=== PATIENT | male | born 1980 | race Two or more races ===

== ENCOUNTER 2016-10-17 00:14 | Inpatient (IN) | payer SELFPAY ==
[~2016-10-17] VITALS: Ht 182.9 cm; Wt 83.3 kg
[2016-10-17] VITALS (35 sets, daily range): BP systolic 121–183; BP diastolic 66–107
[2016-10-17 00:48] LABS: Basophils # (auto) 0.1 uL; Basophils % (auto) 1.3 % (0.0-2.0); DEFINITIVE VIEW TRANSMISSION; Eosinophils # (auto) 0.2 uL; Eosinophils % (auto) 2.4 % (0.0-7.0); Hematocrit 42.7 % (41.0-53.0); Hemoglobin 14.1 g/dL (13.5-17.5); Lymphocytes # (auto) 3.4 uL; Lymphocytes % (auto) 46.3 % (10.0-50.0); Mean Corpuscular Hemoglobin 25.1 pg (28.0-32.0); Mean Corpuscular Hgb Conc. 32.9 g/dL (32.0-36.0); Mean Corpuscular Volume 76.1 fL (80.0-100.0); Mean Platelet Volume 9.2 fL (7.4-10.4); Monocytes # (auto) 0.4 uL; Neutrophils # (auto) 3.3 uL; Platelet Count (auto) 307 10^3/uL (140-450); Red Cell Distribution Width 11.8 % (11.6-16.0); White Blood Cell 7.4 10^3/uL (4.4-10.8)
[2016-10-17 01:01] LABS: Partial Thromboplastin Time 26.3 sec (22.64-33.71); Prothrombin Time 9.4 sec (9.37-12.3)
[2016-10-17 01:08] LABS: Anion Gap 8 (5-15); Blood Urea Nitrogen 22 mg/dL (7-18); Calcium 8.7 mg/dL (8.5-10.1); Carbon Dioxide 28 mmol/L (21-32); Chloride 101 mmol/L (98-107); Glucose 328 mg/dL (74-106); Magnesium 2.1 mg/dL (1.6-2.6); Potassium 3.9 mmol/L (3.5-5.1); Sodium 137 mmol/L (136-145)
[2016-10-17 01:09] LABS: INR 0.87 (0.9-1.15)
[2016-10-17 01:10] LABS: Alkaline Phosphatase 165 U/L (45-117); Aspartate Aminotransferase 11 U/L (15-37); BUN/Creatinine Ratio 19.3; Bilirubin, Total 0.8 mg/dL (0.2-1.0); GFR African American 92 mL/min; GFR Non-African American 76 mL/min; Total Protein 7.1 g/dL (6.4-8.2)
[2016-10-17 01:15] LABS: B-Type Natriuretic Peptide 15.6 pg/mL (0-100); Temperature: 21.4 C (20.0-25.0)
[2016-10-17] MEDS ORDERED: cloNIDine HCL 0.1 MG TAB PO ONE (02:15)
[2016-10-17] MEDS ORDERED: SODIUM CHLORIDE 0.9% 1,000 ML IV SCH (06:01)
[2016-10-17] MEDS ORDERED: NITROGLYCERIN 0.4 MG SL TAB SL PRN (06:15)
[2016-10-17] MEDS ORDERED: DEXTROSE (50%) 50ML SYRG IV PRN (06:15)
[2016-10-17] MEDS ORDERED: ACETAMINOPHEN 325 MG TAB PO PRN (06:15)
[2016-10-17] MEDS ORDERED: ONDANSETRON HCL 4 MG/2 ML VIAL IV PRN (06:15)
[2016-10-17] MEDS ORDERED: HYDROcodone-ACET 5/325MG TAB PO PRN (06:15)
[2016-10-17] MEDS ORDERED: MORPHINE SULF INJ 2 MG/ML SYRINGE 1ML IV PRN ×2 (06:15)
[2016-10-17] MEDS: ASPirin 325 MG TAB PO SCH (09:56)
[2016-10-17] MEDS: PANTOPRAZOLE SODIUM 40 MG/10 ML VIAL IV SCH (10:07)
[2016-10-17] MEDS: ENOXAPARIN SOD 40 MG/0.4 ML SYRINGE SC SCH (10:08)
[2016-10-17] MEDS ORDERED: LORazepam 2MG/ML-1ML VIAL ONE (10:47)
[2016-10-17] MEDS ORDERED: ENAL20TA70 PO (10:58)
[2016-10-17] MEDS ORDERED: LEVEMIR SC (10:58)
[2016-10-17] MEDS ORDERED: RABE20TA5 PO (10:58)
[2016-10-17] MEDS ORDERED: INSDRIP SC (10:58)
[2016-10-17] MEDS ORDERED: LORazepam 2MG/ML-1ML VIAL IV ONE (11:00)
[2016-10-17] MEDS: InsuLIN REG 1unit/0.01ml Soln (100units/ml) SC SCH ×3 (12:00→23:12)
[2016-10-17] MEDS: ACCU-CHEK COMFORT CURVE STRIP VI SCH ×3 (12:00→23:12)
[2016-10-17] MEDS ORDERED: LABETALOL HCL 5 MG/ML 4ML SYRINGE IV PRN (16:45)
[2016-10-17] MEDS: SODIUM CHLORIDE 0.9% 1,000 ML IV SCH (17:11)
[2016-10-17 17:18] LABS: Cholesterol 252 mg/dL (< 200); HDL Cholesterol 40 mg/dL (40-59); Triglycerides 436 mg/dL (< 150)
[2016-10-17] MEDS: INSULIN DETEMIR(LEVEMIR) 1unit/0.01ml Soln (100units/ml) SC SCH (22:00)
[2016-10-17] MEDS: ATORVASTATIN 20 MG TAB PO SCH (22:00)
[2016-10-17] MEDS ORDERED: LORazepam 2MG/ML-1ML VIAL IV PRN (22:30)
[2016-10-18] VITALS (23 sets, daily range): BP systolic 135–176; BP diastolic 57–95
[2016-10-18 03:48] LABS: Basophils # (auto) 0 uL; Basophils % (auto) 0.4 % (0.0-2.0); DEFINITIVE VIEW TRANSMISSION; Eosinophils # (auto) 0.1 uL; Eosinophils % (auto) 1.5 % (0.0-7.0); Lymphocytes # (auto) 1.8 uL; Lymphocytes % (auto) 20.6 % (10.0-50.0); Mean Corpuscular Hemoglobin 25.2 pg (28.0-32.0); Mean Corpuscular Hgb Conc. 32.5 g/dL (32.0-36.0); Mean Corpuscular Volume 77.5 fL (80.0-100.0); Mean Platelet Volume 9.4 fL (7.4-10.4); Monocytes # (auto) 0.4 uL; Monocytes % (auto) 4.7 % (0.0-12.0); Neutrophils # (auto) 6.5 uL; Neutrophils % (auto) 72.8 % (37.0-80.0); Platelet Count (auto) 296 10^3/uL (140-450); Red Cell Distribution Width 13.2 % (11.6-16.0); White Blood Cell 8.9 10^3/uL (4.4-10.8)
[2016-10-18 04:14] LABS: Albumin 2.6 g/dL (3.4-5.0); BUN/Creatinine Ratio 22.1; Bilirubin, Total 0.9 mg/dL (0.2-1.0); Calcium 8.6 mg/dL (8.5-10.1); Magnesium 2.2 mg/dL (1.6-2.6); Potassium 3.9 mmol/L (3.5-5.1); Total Protein 6.5 g/dL (6.4-8.2)
[2016-10-18] MEDS: InsuLIN REG 1unit/0.01ml Soln (100units/ml) SC SCH ×4 (06:00→23:40)
[2016-10-18] MEDS: ACCU-CHEK COMFORT CURVE STRIP VI SCH ×4 (06:05→23:41)
[2016-10-18] MEDS: SODIUM CHLORIDE 0.9% 1,000 ML IV SCH (09:26)
[2016-10-18] MEDS: ASPirin 325 MG TAB PO SCH (09:26)
[2016-10-18] MEDS: PANTOPRAZOLE SODIUM 40 MG/10 ML VIAL IV SCH (09:26)
[2016-10-18] MEDS: ENOXAPARIN SOD 40 MG/0.4 ML SYRINGE SC SCH (09:27)
[2016-10-18] MEDS ORDERED: LISINOPRIL 20 MG TAB PO SCH (10:00)
[2016-10-18] MEDS ORDERED: MIDAZOLAM HCL 5 MG/ML-1ML VIAL IV ONE (10:15)
[2016-10-18] MEDS ORDERED: fentaNYL CITRATE 100 MCG/2 ML VL IV ONE (10:15)
[2016-10-18] MEDS ORDERED: LIDOCAINE VISCOUS 2% 15ML UD ONE (13:01)
[2016-10-18] MEDS ORDERED: LIDOCAINE VISCOUS 2% 15ML UD MT ONE (13:15)
[2016-10-18] MEDS: LABETALOL HCL 5 MG/ML 4ML SYRINGE IV PRN ×2 (18:29→20:30)
[2016-10-18] MEDS: cloNIDine HCL 0.1 MG TAB PO PRN (19:11)
[2016-10-18] MEDS: ATORVASTATIN 20 MG TAB PO SCH (21:46)
[2016-10-18] MEDS: INSULIN DETEMIR(LEVEMIR) 1unit/0.01ml Soln (100units/ml) SC SCH (21:46)
[2016-10-19] VITALS (19 sets, daily range): BP systolic 131–197; BP diastolic 75–96
[2016-10-19] MEDS: SODIUM CHLORIDE 0.9% 1,000 ML IV SCH (03:54)
[2016-10-19 04:24] LABS: Potassium 3.7 mmol/L (3.5-5.1)
[2016-10-19 04:30] LABS: BUN/Creatinine Ratio 18.1; Calcium 8.4 mg/dL (8.5-10.1)
[2016-10-19] MEDS: ACCU-CHEK COMFORT CURVE STRIP VI SCH ×3 (05:54→18:27)
[2016-10-19] MEDS: InsuLIN REG 1unit/0.01ml Soln (100units/ml) SC SCH ×3 (05:54→18:00)
[2016-10-19] MEDS: ENOXAPARIN SOD 40 MG/0.4 ML SYRINGE SC SCH (09:30)
[2016-10-19] MEDS: ASPirin 325 MG TAB PO SCH (09:30)
[2016-10-19] MEDS: PANTOPRAZOLE SODIUM 40 MG/10 ML VIAL IV SCH (09:31)
[2016-10-19] MEDS ORDERED: METOPROLOL TARTRATE 25 MG TAB PO ONE (10:45)
[2016-10-19] MEDS ORDERED: SODIUM CHLORIDE 0.9% 1,000 ML IV SCH (10:45)
[2016-10-19] MEDS ORDERED: LISINOPRIL 20 MG TAB PO ONE (10:45)
[2016-10-19] MEDS ORDERED: IOHEXOL 350 MG/ML 100ML IJ ONE (11:02)
[2016-10-19] MEDS: LABETALOL HCL 5 MG/ML 4ML SYRINGE IV PRN ×4 (12:31→23:38)
[2016-10-19] MEDS ORDERED: INSULIN DETEMIR(LEVEMIR) 1unit/0.01ml Soln (100units/ml) SC SCH (22:00)
[2016-10-19] MEDS: METOPROLOL TARTRATE 25 MG TAB PO SCH (22:08)
[2016-10-19] MEDS: ATORVASTATIN 20 MG TAB PO SCH (22:08)
[2016-10-20] VITALS (7 sets, daily range): BP systolic 131–187; BP diastolic 74–93
[2016-10-20] MEDS: ACCU-CHEK COMFORT CURVE STRIP VI SCH ×3 (00:25→11:45)
[2016-10-20] MEDS: cloNIDine HCL 0.1 MG TAB PO PRN (00:44)
[2016-10-20] MEDS: LABETALOL HCL 5 MG/ML 4ML SYRINGE IV PRN (02:35)
[2016-10-20] MEDS: InsuLIN REG 1unit/0.01ml Soln (100units/ml) SC SCH ×3 (06:00→11:47)
[2016-10-20] MEDS: PANTOPRAZOLE SODIUM 40 MG/10 ML VIAL IV SCH (09:34)
[2016-10-20] MEDS: ENOXAPARIN SOD 40 MG/0.4 ML SYRINGE SC SCH (09:34)
[2016-10-20] MEDS: ASPirin 325 MG TAB PO SCH (09:34)
[2016-10-20] MEDS: METOPROLOL TARTRATE 25 MG TAB PO SCH (09:36)
[2016-10-20] MEDS ORDERED: LISINOPRIL 20 MG TAB PO SCH (10:00)
[2016-10-20 11:06] LABS: Anticardiolipin IgM Antibody <9 MPL U/mL (0-12)
[2016-10-20 12:06] LABS: Protein S Antigen Free 108 % (57-157); Proten S Antigen Total 180 % (60-150)
== END 2016-10-20 16:38 | disposition home or self-care (01) | DRG 65 ==
LOC: ER 00:20 → TELE 00:21 → TELE-WESTW 07:29 → ICU WEST 11:35 → TELE-WESTW 10-20 01:47
PROVIDERS: ADMIT Nurse Practitioner; ATTEND Internal Medicine
PROC: B246ZZ4 Ultrasonography of Right and Left Heart, Transesophageal (ICD-10-PCS; principal; 2016-10-17)
DX: I63.9 Cerebral infarction, unspecified (principal); G81.94 Hemiplegia, unspecified affecting left nondominant side; G81.91 Hemiplegia, unspecified affecting right dominant side; I25.3 Aneurysm of heart; E11.42 Type 2 diabetes mellitus with diabetic polyneuropathy; E11.65 Type 2 diabetes mellitus with hyperglycemia; F17.210 Nicotine dependence, cigarettes, uncomplicated; E78.5 Hyperlipidemia, unspecified; R47.1 Dysarthria and anarthria; F32.9 Major depressive disorder, single episode, unspecified; I10 Essential (primary) hypertension; Z82.49 Family history of ischemic heart disease and other diseases of the circulatory system; Z83.3 Family history of diabetes mellitus; Z80.8 Family history of malignant neoplasm of other organs or systems; Z91.14 Patient's other noncompliance with medication regimen; I25.2 Old myocardial infarction; Z91.19 Patient's noncompliance with other medical treatment and regimen
CPT/HCPCS: 36415; 36600; 70450; 70496; 70498; 70551; 71010; 80048; 80053; 80061; 81241; 82805; 82962; 83036; 83090; 83735; 83880; 84443; 84484; 85025; 85301; 85302; 85303; 85305; 85306; 85610; 85613; 85670; 85705; 85730; 85732; 86147; 87081; 92610; 93005; 93306; 93312; 93886; 96360; C9113; G0434; J1815; J2250; J3490

== ENCOUNTER 2018-11-04 12:11 | Emergency (ER) | payer MEDICAID ==
[~2018-11-04] VITALS: Ht 182.9 cm; Wt 81.6 kg
[~2018-11-04 12:11] MED LIST: ENAL20TA70 PO; LEVEMIR SC; RABE20TA5 PO
[2018-11-04 13:26] LABS: Basophils # (auto) 0.1 uL; Eosinophils # (auto) 0.1 uL; Eosinophils % (auto) 1.8 % (0.0-7.0); Lymphocytes # (auto) 1.8 uL; Mean Corpuscular Hemoglobin 25.4 pg (28.0-32.0); Monocytes # (auto) 0.5 uL; White Blood Cell 7.2 10^3/uL (4.4-10.8)
[2018-11-04 13:28] LABS: Basophils % (auto) 0.8 % (0.0-2.0); Hematocrit 38.8 % (41.0-53.0); Hemoglobin 12.9 g/dL (13.5-17.5); Lymphocytes % (auto) 24.7 % (10.0-50.0); Mean Corpuscular Hgb Conc. 33.2 g/dL (32.0-36.0); Mean Corpuscular Volume 76.5 fL (80.0-100.0); Monocytes % (auto) 6.4 % (0.0-12.0); Neutrophils # (auto) 4.8 uL; Neutrophils % (auto) 66.3 % (37.0-80.0); Platelet Count (auto) 307 10^3/uL (140-450); Red Blood Cells 5.07 10^6/uL (4.5-5.90); Red Cell Distribution Width 13.3 % (11.8-14.3)
[2018-11-04 13:41] LABS: INR 0.85 (0.9-1.15); Partial Thromboplastin Time 30.6 sec (23.78-33.04); Prothrombin Time 9.2 sec (9.27-12.13)
[2018-11-04 13:43] LABS: Alanine Aminotransferase 16 U/L (16-61); Albumin 2.8 g/dL (3.4-5.0); Anion Gap 8 (5-15); Aspartate Aminotransferase 14 U/L (15-37); Blood Urea Nitrogen 38 mg/dL (7-18); Calcium 8.6 mg/dL (8.5-10.1); Carbon Dioxide 23 mmol/L (21-32); Chloride 107 mmol/L (98-107); GFR African American 60 mL/min; GFR Non-African American 49 mL/min; Glucose 305 mg/dL (74-106); Potassium 4.3 mmol/L (3.5-5.1); Sodium 138 mmol/L (136-145)
[2018-11-04 13:48] LABS: Alkaline Phosphatase 158 U/L (45-117); Bilirubin, Total 0.4 mg/dL (0.2-1.0); Total Protein 6.8 g/dL (6.4-8.2)
[2018-11-04 16:20] VITALS: BP 158/80
== END 2018-11-04 17:06 | disposition home or self-care (01) ==
LOC: EDBD 12:11 → ER 12:11
DX: R42 Dizziness and giddiness (principal); R55 Syncope and collapse; I48.91 Unspecified atrial fibrillation; E11.9 Type 2 diabetes mellitus without complications; I10 Essential (primary) hypertension; I25.2 Old myocardial infarction; Z88.8 Allergy status to other drugs, medicaments and biological substances; Z79.899 Other long term (current) drug therapy; Z86.73 Personal history of transient ischemic attack (TIA), and cerebral infarction without residual deficits
CPT/HCPCS: 36415; 70450; 71045; 80053; 84484; 85025; 85610; 85730; 93005; 94761

== ENCOUNTER 2019-09-22 09:37 | Inpatient (IN) | payer MEDICARE, MEDICAID ==
[~2019-09-22] VITALS: Ht 182.9 cm; Wt 97.1 kg
[~2019-09-22 09:37] MED LIST changes: +ENAL20TA PO; -ENAL20TA70 PO
[2019-09-22 10:14] LABS: Urine Bacteria NONE SEEN /hpf (None Seen); Urine Blood TRACE /uL (Negative); Urine Hyaline Cast FEW /lpf (0 - 2); Urine Specific Gravity 1.008 (1.001-1.035); Urine WBC 1 /hpf (0 - 3)
[2019-09-22 10:24] LABS: Basophils # (auto) 0.1 10 ^3/uL (0-0.2); Eosinophils # (auto) 0.2 10 ^3/uL (0-0.8); Hemoglobin 11.6 g/dL (13.5-17.5); Lymphocytes # (auto) 2.2 10 ^3/uL (0.4-5.4); Monocytes # (auto) 0.8 10 ^3/uL (0-1.3)
[2019-09-22 10:25] LABS: Basophils % (auto) 0.9 % (0.0-2.0); Eosinophils % (auto) 1.3 % (0.0-7.0); Hematocrit 35.6 % (41.0-53.0); Lymphocytes % (auto) 17.6 % (10.0-50.0); Mean Corpuscular Hemoglobin 25.6 pg (28.0-32.0); Mean Corpuscular Hgb Conc. 32.6 g/dL (32.0-36.0); Mean Corpuscular Volume 78.6 fL (80.0-100.0); Monocytes % (auto) 6.5 % (0.0-12.0); Neutrophils % (auto) 73.7 % (37.0-80.0); Nucleated Red Blood Cells % 0.1 %; Platelet Count (auto) 474 10^3/uL (140-450); Red Blood Cells 4.54 10^6/uL (4.5-5.90); White Blood Cell 12.3 10^3/uL (4.4-10.8)
[2019-09-22] MEDS ORDERED: CLINDAMYCIN 900MG IV 50 ML IV ONE (10:30)
[2019-09-22] MEDS ORDERED: NIFEdipine 10 MG CAP PO ONE (10:30)
[2019-09-22 10:43] LABS: Albumin 3.2 g/dL (3.4-5.0); Calcium 9.2 mg/dL (8.5-10.1); Potassium 5.5 mmol/L (3.5-5.1)
[2019-09-22 10:49] LABS: Bilirubin, Total 0.5 mg/dL (0.2-1.0); Total Protein 8.7 g/dL (6.4-8.2)
[2019-09-22 10:50] LABS: BUN/Creatinine Ratio 21.7
[2019-09-22] MEDS ORDERED: VANCOMYCIN PER PHARMACY 0 MG IV SCH (14:45)
[2019-09-22] MEDS ORDERED: NITROGLYCERIN 0.4 MG SL TAB SL PRN (14:45)
[2019-09-22] MEDS ORDERED: DEXTROSE (50%) 50ML SYRG IV PRN (14:45)
[2019-09-22] MEDS ORDERED: SODIUM ZIRCONIUM CYCL 10 GM PAK PO ONE (14:45)
[2019-09-22] MEDS ORDERED: MORPHINE SULF INJ 2 MG/ML SYRINGE 1ML IV PRN (14:45)
[2019-09-22] MEDS ORDERED: SODIUM CHLORIDE 0.9% 500 ML IV ONE (14:45)
[2019-09-22] MEDS: SODIUM CHLORIDE 0.9% 1,000 ML IV SCH (16:11)
[2019-09-22] MEDS: VANCOMYCIN 1GM/250ML 250 ML IV SCH (16:12)
[2019-09-22 17:00] VITALS: BP 167/86
[2019-09-22] MEDS: InsuLIN REG 1unit/0.01ml Soln (100units/ml) SC SCH ×2 (17:00→21:20)
[2019-09-22 18:21] LABS: Calcium 8.7 mg/dL (8.5-10.1); Potassium 5.1 mmol/L (3.5-5.1)
[2019-09-22 18:23] LABS: BUN/Creatinine Ratio 19.6
[2019-09-22] MEDS: ACCU-CHEK COMFORT CURVE STRIP VI SCH ×2 (18:41→21:10)
[2019-09-22] MEDS: metroNIDAZOLE 500MG/100ML 100 ML IV SCH (21:10)
[2019-09-22] MEDS: hydrALAZINE HCL 20 MG/ML VL IV PRN (22:37)
[2019-09-22 23:41] VITALS: BP 145/71
[2019-09-23 05:30] VITALS: BP 159/79
[2019-09-23] MEDS: metroNIDAZOLE 500MG/100ML 100 ML IV SCH ×3 (06:15→21:52)
[2019-09-23] MEDS: ACCU-CHEK COMFORT CURVE STRIP VI SCH ×4 (06:16→21:53)
[2019-09-23] MEDS: hydrALAZINE HCL 20 MG/ML VL IV PRN ×2 (06:16→18:12)
[2019-09-23] MEDS: InsuLIN REG 1unit/0.01ml Soln (100units/ml) SC SCH ×4 (06:16→22:08)
[2019-09-23] MEDS: SODIUM CHLORIDE 0.9% 1,000 ML IV SCH ×2 (06:33→10:45)
[2019-09-23] MEDS ORDERED: HYDR25TA4 PO (06:39)
[2019-09-23] MEDS ORDERED: LISI40TA PO (06:39)
[2019-09-23] MEDS ORDERED: GEMF600T7 PO (06:39)
[2019-09-23 09:00] VITALS: BP 145/85
[2019-09-23] MEDS ORDERED: levoFLOXacin 250MG 50 ML IV SCH (10:00)
[2019-09-23] MEDS: levoFLOXacin 750MG 150 ML IV SCH (10:00)
[2019-09-23] MEDS: VANCOMYCIN 1GM/250ML 250 ML IV SCH (10:17)
[2019-09-23] MEDS: amLODIPine BESYLATE 5 MG TAB PO SCH (10:18)
[2019-09-23 10:46] LABS: BUN/Creatinine Ratio 19.6; Calcium 8.5 mg/dL (8.5-10.1); Potassium 5.3 mmol/L (3.5-5.1)
[2019-09-23] MEDS ORDERED: SODIUM CHLORIDE 0.9% 1,000 ML IV SCH (11:30)
[2019-09-23] MEDS ORDERED: ASPirin-EC 81 mg tab PO ONE (12:15)
[2019-09-23] MEDS ORDERED: LACTULOSE 20Gm/30ML SOLN PO ONE (12:15)
[2019-09-23] MEDS ORDERED: LISINOPRIL 20 MG TAB PO ONE (12:15)
[2019-09-23] MEDS ORDERED: GEMFIBROZIL 600 MG TAB PO ONE (12:15)
[2019-09-23] MEDS ORDERED: HCTZ 25 MG TAB PO ONE (12:15)
[2019-09-23] MEDS ORDERED: ASPI-404 PO (12:20)
[2019-09-23 13:00] VITALS: BP 178/89
[2019-09-23] MEDS ORDERED: FUROSEMIDE 100 MG/10ML VIAL IV ONE (13:00)
[2019-09-23] MEDS ORDERED: SODIUM BICARBONATE 8.4% INJ 50ML SYRINGE IV ONE (13:00)
[2019-09-23] MEDS ORDERED: InsuLIN REG 1unit/0.01ml Soln (100units/ml) IV ONE (13:00)
[2019-09-23] MEDS ORDERED: ALBUTEROL SULF 2.5 MG/0.5ML(0.5%) NEB SOLN NEB ONE (13:00)
[2019-09-23] MEDS ORDERED: DEXTROSE (50%) 50ML SYRG IV ONE (13:00)
[2019-09-23] MEDS: SODIUM BICARBONATE 650 MG TAB PO SCH ×3 (13:22→21:52)
[2019-09-23] MEDS: SODIUM ZIRCONIUM CYCL 10 GM PAK PO SCH ×2 (13:25→22:00)
[2019-09-23] MEDS: HYDROcodone-ACET 5/325MG TAB PO PRN (16:54)
[2019-09-23 17:00] VITALS: BP 154/64
[2019-09-23] MEDS: GEMFIBROZIL 600 MG TAB PO SCH (21:52)
[2019-09-23] MEDS: ACETYLCYSTEINE ORAL for CIN 20%(200MG/ML) 4ML PO SCH (21:53)
[2019-09-23 22:00] VITALS: BP 145/89
[2019-09-23 22:05] LABS: Basophils # (auto) 0.1 10 ^3/uL (0-0.2); Eosinophils # (auto) 0 10 ^3/uL (0-0.8); Mean Corpuscular Hgb Conc. 32.9 g/dL (32.0-36.0); Mean Corpuscular Volume 78.2 fL (80.0-100.0); Monocytes # (auto) 1.2 10 ^3/uL (0-1.3)
[2019-09-23 22:07] LABS: Basophils % (auto) 0.5 % (0.0-2.0); Eosinophils % (auto) 0.3 % (0.0-7.0); Hematocrit 28.2 % (41.0-53.0); Hemoglobin 9.3 g/dL (13.5-17.5); Lymphocytes # (auto) 1.9 10 ^3/uL (0.4-5.4); Lymphocytes % (auto) 13.3 % (10.0-50.0); Mean Corpuscular Hemoglobin 25.8 pg (28.0-32.0); Monocytes % (auto) 8.5 % (0.0-12.0); Neutrophils # (auto) 11.2 10 ^3/uL (1.6-8.6); Neutrophils % (auto) 77.4 % (37.0-80.0); Platelet Count (auto) 368 10^3/uL (140-450); Red Blood Cells 3.61 10^6/uL (4.5-5.90); White Blood Cell 14.5 10^3/uL (4.4-10.8)
[2019-09-23 22:24] LABS: BUN/Creatinine Ratio 16.9; Calcium 8.3 mg/dL (8.5-10.1); Potassium 4.7 mmol/L (3.5-5.1)
[2019-09-24] MEDS: VANCOMYCIN 1GM/250ML 250 ML IV SCH ×2 (00:56→17:19)
[2019-09-24 05:00] VITALS: BP_SYST 106; BP_SYST 118; BP_DIAS 53; BP_DIAS 74
[2019-09-24] MEDS: metroNIDAZOLE 500MG/100ML 100 ML IV SCH (05:37)
[2019-09-24] MEDS: SODIUM BICARBONATE 650 MG TAB PO SCH ×4 (05:38→23:00)
[2019-09-24] MEDS: SODIUM ZIRCONIUM CYCL 10 GM PAK PO SCH (05:38)
[2019-09-24] MEDS: ACCU-CHEK COMFORT CURVE STRIP VI SCH ×4 (06:18→23:01)
[2019-09-24] MEDS: InsuLIN REG 1unit/0.01ml Soln (100units/ml) SC SCH ×4 (06:19→22:00)
[2019-09-24 06:24] LABS: Basophils # (auto) 0.1 10 ^3/uL (0-0.2); Basophils % (auto) 0.8 % (0.0-2.0); Eosinophils # (auto) 0.1 10 ^3/uL (0-0.8); Red Cell Distribution Width 12.6 % (11.8-14.3); White Blood Cell 11.9 10^3/uL (4.4-10.8)
[2019-09-24 06:27] LABS: Eosinophils % (auto) 0.5 % (0.0-7.0); Hematocrit 27.8 % (41.0-53.0); Hemoglobin 9.4 g/dL (13.5-17.5); Lymphocytes # (auto) 2.5 10 ^3/uL (0.4-5.4); Lymphocytes % (auto) 20.8 % (10.0-50.0); Mean Corpuscular Hemoglobin 26.3 pg (28.0-32.0); Mean Corpuscular Hgb Conc. 33.6 g/dL (32.0-36.0); Monocytes % (auto) 8.7 % (0.0-12.0); Neutrophils # (auto) 8.2 10 ^3/uL (1.6-8.6); Neutrophils % (auto) 69.2 % (37.0-80.0); Platelet Count (auto) 361 10^3/uL (140-450); Red Blood Cells 3.56 10^6/uL (4.5-5.90)
[2019-09-24 06:46] LABS: Potassium 4.7 mmol/L (3.5-5.1)
[2019-09-24 06:54] LABS: Albumin 2.4 g/dL (3.4-5.0); Bilirubin, Total 0.8 mg/dL (0.2-1.0); Calcium 8.2 mg/dL (8.5-10.1); Total Protein 6.7 g/dL (6.4-8.2)
[2019-09-24 09:00] VITALS: BP 130/72
[2019-09-24] MEDS: levoFLOXacin 750MG 150 ML IV SCH (09:49)
[2019-09-24] MEDS: ASPirin-EC 81 mg tab PO SCH (09:51)
[2019-09-24] MEDS: amLODIPine BESYLATE 5 MG TAB PO SCH (09:52)
[2019-09-24] MEDS: GEMFIBROZIL 600 MG TAB PO SCH ×2 (09:52→23:00)
[2019-09-24] MEDS: HCTZ 25 MG TAB PO SCH (09:53)
[2019-09-24] MEDS ORDERED: LISINOPRIL 20 MG TAB PO SCH (10:00)
[2019-09-24] MEDS ORDERED: LACTULOSE 20Gm/30ML SOLN PO ONE (10:00)
[2019-09-24] MEDS ORDERED: SODIUM CHLORIDE 0.9% 1,000 ML IV SCH ×2 (10:30)
[2019-09-24] MEDS ORDERED: ACETYLCYSTEINE ORAL for CIN 20%(200MG/ML) 4ML PO ONE (10:30)
[2019-09-24] MEDS: ACETYLCYSTEINE ORAL for CIN 20%(200MG/ML) 4ML PO SCH ×2 (11:40→22:00)
[2019-09-24 11:54] LABS: INR 1.05 (0.9-1.15)
[2019-09-24] MEDS ORDERED: LIDOCAINE 1% (LOCAL ANESTH.) PF 5ml SDV ID ONE (15:30)
[2019-09-24 17:06] VITALS: BP 136/68
[2019-09-24 20:00] VITALS: BP 152/86
[2019-09-24 22:00] VITALS: BP 152/86
[2019-09-24] MEDS: SODIUM CHLOR 0.9% PF (SALINE LOCK) 10ML VIAL/SYR IV SCH (22:00)
[2019-09-24] MEDS ORDERED: ACETYLCYSTEINE ORAL for CIN 20%(200MG/ML) 4ML PO SCH (22:00)
[2019-09-25 05:00] VITALS: BP 140/67
[2019-09-25] MEDS: SODIUM BICARBONATE 650 MG TAB PO SCH ×4 (05:49→22:46)
[2019-09-25 05:58] LABS: Basophils # (auto) 0.1 10 ^3/uL (0-0.2); Basophils % (auto) 0.6 % (0.0-2.0); Eosinophils # (auto) 0.1 10 ^3/uL (0-0.8); Eosinophils % (auto) 0.9 % (0.0-7.0); Hematocrit 26.7 % (41.0-53.0); Hemoglobin 8.7 g/dL (13.5-17.5); Lymphocytes # (auto) 2.3 10 ^3/uL (0.4-5.4); Lymphocytes % (auto) 19.3 % (10.0-50.0); Mean Corpuscular Hemoglobin 25.6 pg (28.0-32.0); Mean Corpuscular Hgb Conc. 32.5 g/dL (32.0-36.0); Mean Corpuscular Volume 78.7 fL (80.0-100.0); Monocytes # (auto) 0.9 10 ^3/uL (0-1.3); Neutrophils # (auto) 8.4 10 ^3/uL (1.6-8.6); Neutrophils % (auto) 71.2 % (37.0-80.0); Platelet Count (auto) 357 10^3/uL (140-450); Red Blood Cells 3.39 10^6/uL (4.5-5.90); Red Cell Distribution Width 12.6 % (11.8-14.3); White Blood Cell 11.8 10^3/uL (4.4-10.8)
[2019-09-25 06:12] LABS: Albumin 2.1 g/dL (3.4-5.0); Calcium 8.3 mg/dL (8.5-10.1); Potassium 4.7 mmol/L (3.5-5.1)
[2019-09-25 06:15] LABS: BUN/Creatinine Ratio 17.6
[2019-09-25 06:18] LABS: Bilirubin, Total 0.6 mg/dL (0.2-1.0); Total Protein 6.7 g/dL (6.4-8.2)
[2019-09-25] MEDS: InsuLIN REG 1unit/0.01ml Soln (100units/ml) SC SCH ×4 (07:00→22:49)
[2019-09-25] MEDS: ACCU-CHEK COMFORT CURVE STRIP VI SCH ×4 (07:10→22:00)
[2019-09-25 08:00] VITALS: BP 127/65
[2019-09-25] MEDS ORDERED: SODIUM CHLORIDE 0.9% 1,000 ML IV SCH (08:00)
[2019-09-25] MEDS ORDERED: SODIUM BICARBONATE 50ML VIAL 50 ML in SOD CHL 0.45% 1,000 ML IV SCH ×2 (08:00→08:30)
[2019-09-25] MEDS ORDERED: SODIUM BICARBONATE 50ML VIAL 50 ML in SODIUM CHLORIDE 0.9% 1,000 ML IV SCH (08:30)
[2019-09-25 09:00] VITALS: BP 127/65
[2019-09-25] MEDS ORDERED: fentaNYL CITRATE 100 MCG/2 ML VL ONE (10:00)
[2019-09-25] MEDS: CLOPIDOGREL BISULFATE 75 MG TAB PO SCH (10:00)
[2019-09-25] MEDS: ACETYLCYSTEINE ORAL for CIN 20%(200MG/ML) 4ML PO SCH (10:00)
[2019-09-25] MEDS: SODIUM CHLOR 0.9% PF (SALINE LOCK) 10ML VIAL/SYR IV SCH ×2 (10:00→22:46)
[2019-09-25] MEDS: ASPirin-EC 81 mg tab PO SCH (10:00)
[2019-09-25] MEDS ORDERED: ANGIOMAX 250 MG VIAL IV ONE (10:00)
[2019-09-25] MEDS ORDERED: MIDAZOLAM HCL 1MG/1ML-2 ML VIAL ONE ×2 (10:00→10:59)
[2019-09-25] MEDS ORDERED: SODIUM CHL 0.9% 50 ML ONE (10:01)
[2019-09-25] MEDS ORDERED: IODIXANOL 320MG/ML 100ML BTL IV ONE (10:29)
[2019-09-25] MEDS ORDERED: LIDOCAINE 2%HCL (LOCAL ANESTH.) INJ 20ML MDV ONE (10:29)
[2019-09-25] MEDS ORDERED: CLOPIDOGREL BISULFATE 75 MG TAB ONE (11:43)
[2019-09-25] MEDS ORDERED: ASPirin 81 mg TAB ONE (11:43)
[2019-09-25] MEDS: GEMFIBROZIL 600 MG TAB PO SCH ×2 (13:23→22:46)
[2019-09-25] MEDS: HCTZ 25 MG TAB PO SCH (13:23)
[2019-09-25] MEDS: CEFTRIAXONE SODIUM 2 GM in D5W 5% 50 ML IV SCH (13:23)
[2019-09-25] MEDS: amLODIPine BESYLATE 5 MG TAB PO SCH (13:24)
[2019-09-25 16:00] VITALS: BP 134/66
[2019-09-25 20:00] VITALS: BP 153/84
[2019-09-25 20:45] VITALS: BP_SYST 112; BP_SYST 153; BP_DIAS 63; BP_DIAS 84
[2019-09-25] MEDS: HYDROcodone-ACET 5/325MG TAB PO PRN (20:56)
[2019-09-26] VITALS (8 sets, daily range): BP systolic 124–160; BP diastolic 62–89
[2019-09-26 05:33] LABS: Basophils # (auto) 0.1 10 ^3/uL (0-0.2); Eosinophils # (auto) 0.1 10 ^3/uL (0-0.8); Monocytes # (auto) 0.9 10 ^3/uL (0-1.3); Red Blood Cells 3.16 10^6/uL (4.5-5.90); Red Cell Distribution Width 12.5 % (11.8-14.3); White Blood Cell 11.1 10^3/uL (4.4-10.8)
[2019-09-26 05:37] LABS: Basophils % (auto) 0.7 % (0.0-2.0); Eosinophils % (auto) 0.8 % (0.0-7.0); Hematocrit 24.7 % (41.0-53.0); Hemoglobin 8.2 g/dL (13.5-17.5); Lymphocytes # (auto) 2.3 10 ^3/uL (0.4-5.4); Lymphocytes % (auto) 20.5 % (10.0-50.0); Mean Corpuscular Hemoglobin 26.1 pg (28.0-32.0); Mean Corpuscular Hgb Conc. 33.2 g/dL (32.0-36.0); Mean Corpuscular Volume 78.4 fL (80.0-100.0); Monocytes % (auto) 8.5 % (0.0-12.0); Neutrophils # (auto) 7.7 10 ^3/uL (1.6-8.6); Neutrophils % (auto) 69.5 % (37.0-80.0); Platelet Count (auto) 329 10^3/uL (140-450)
[2019-09-26 05:48] LABS: Albumin 2.1 g/dL (3.4-5.0); Potassium 4.4 mmol/L (3.5-5.1)
[2019-09-26 05:50] LABS: BUN/Creatinine Ratio 19.5
[2019-09-26 05:53] LABS: Bilirubin, Total 0.5 mg/dL (0.2-1.0); Total Protein 6.3 g/dL (6.4-8.2)
[2019-09-26] MEDS: SODIUM BICARBONATE 650 MG TAB PO SCH ×4 (06:00→21:12)
[2019-09-26] MEDS: ACCU-CHEK COMFORT CURVE STRIP VI SCH ×4 (06:58→21:20)
[2019-09-26] MEDS: InsuLIN REG 1unit/0.01ml Soln (100units/ml) SC SCH ×4 (07:00→21:43)
[2019-09-26] MEDS: CEFTRIAXONE SODIUM 2 GM in D5W 5% 50 ML IV SCH (09:00)
[2019-09-26] MEDS: CLOPIDOGREL BISULFATE 75 MG TAB PO SCH (10:20)
[2019-09-26] MEDS: amLODIPine BESYLATE 5 MG TAB PO SCH (10:20)
[2019-09-26] MEDS: HCTZ 25 MG TAB PO SCH (10:20)
[2019-09-26] MEDS: SODIUM CHLOR 0.9% PF (SALINE LOCK) 10ML VIAL/SYR IV SCH ×2 (10:20→21:12)
[2019-09-26] MEDS: ASPirin-EC 81 mg tab PO SCH (10:20)
[2019-09-26] MEDS: GEMFIBROZIL 600 MG TAB PO SCH ×2 (10:20→21:12)
[2019-09-26] MEDS ORDERED: VANCOMYCIN 1GM/250ML 250 ML IV ONE (11:00)
[2019-09-26] MEDS: hydrALAZINE HCL 20 MG/ML VL IV PRN (14:25)
[2019-09-27] MEDS: SODIUM BICARBONATE 650 MG TAB PO SCH ×4 (05:43→21:33)
[2019-09-27] MEDS: VANCOMYCIN 1GM/250ML 250 ML IV SCH (05:43)
[2019-09-27] MEDS: ACCU-CHEK COMFORT CURVE STRIP VI SCH ×4 (05:52→21:24)
[2019-09-27] MEDS: InsuLIN REG 1unit/0.01ml Soln (100units/ml) SC SCH ×4 (06:18→21:36)
[2019-09-27 06:51] LABS: Calcium 8.2 mg/dL (8.5-10.1); Potassium 4.2 mmol/L (3.5-5.1)
[2019-09-27 08:55] VITALS: BP 150/69
[2019-09-27] MEDS: GEMFIBROZIL 600 MG TAB PO SCH ×2 (09:52→21:35)
[2019-09-27] MEDS: CLOPIDOGREL BISULFATE 75 MG TAB PO SCH (09:52)
[2019-09-27] MEDS: SODIUM CHLOR 0.9% PF (SALINE LOCK) 10ML VIAL/SYR IV SCH ×2 (09:52→22:00)
[2019-09-27] MEDS: CEFTRIAXONE SODIUM 2 GM in D5W 5% 50 ML IV SCH (09:52)
[2019-09-27] MEDS: ASPirin-EC 81 mg tab PO SCH (09:52)
[2019-09-27] MEDS: HCTZ 25 MG TAB PO SCH (09:53)
[2019-09-27] MEDS: amLODIPine BESYLATE 5 MG TAB PO SCH (09:53)
[2019-09-27] MEDS ORDERED: DOCUSATE SOD 100 MG CAP PO PRN (10:45)
[2019-09-27 12:35] VITALS: BP 143/81
[2019-09-27 17:26] VITALS: BP 153/89
[2019-09-27] MEDS: hydrALAZINE HCL 20 MG/ML VL IV PRN (17:41)
[2019-09-27 21:16] VITALS: BP 161/89
[2019-09-27] MEDS: CARVEDILOL 3.125 MG TAB PO SCH (21:34)
[2019-09-27] MEDS: HYDROcodone-ACET 5/325MG TAB PO PRN (21:42)
[2019-09-28] MEDS: VANCOMYCIN 1GM/250ML 250 ML IV SCH ×2 (01:34→21:42)
[2019-09-28 05:01] VITALS: BP 121/54
[2019-09-28] MEDS: SODIUM BICARBONATE 650 MG TAB PO SCH ×4 (06:00→21:43)
[2019-09-28] MEDS: ACCU-CHEK COMFORT CURVE STRIP VI SCH ×4 (06:33→22:17)
[2019-09-28 06:50] LABS: Calcium 8.2 mg/dL (8.5-10.1)
[2019-09-28 06:52] LABS: BUN/Creatinine Ratio 18.8
[2019-09-28] MEDS: InsuLIN REG 1unit/0.01ml Soln (100units/ml) SC SCH ×4 (06:59→22:00)
[2019-09-28 08:00] VITALS: BP 133/67
[2019-09-28 09:00] VITALS: BP 133/67
[2019-09-28] MEDS: CEFTRIAXONE SODIUM 2 GM in D5W 5% 50 ML IV SCH (09:00)
[2019-09-28] MEDS ORDERED: ceFAZolin 1GM/50ML 100 ML IV ONE (09:07)
[2019-09-28] MEDS ORDERED: ceFAZolin 1GM VL ONE (09:14)
[2019-09-28] MEDS ORDERED: fentaNYL CITRATE 100 MCG/2 ML VL ONE (09:19)
[2019-09-28] MEDS ORDERED: MIDAZOLAM HCL 1MG/1ML-2 ML VIAL ONE (09:19)
[2019-09-28] MEDS ORDERED: MEPERIDINE HCL (25 MG/ML) 1ML VIAL ONE (09:19)
[2019-09-28] MEDS ORDERED: PROPOFOL 10 MG/ML 20 ML IV ONE (09:20)
[2019-09-28] MEDS: CLOPIDOGREL BISULFATE 75 MG TAB PO SCH (10:00)
[2019-09-28] MEDS: ASPirin-EC 81 mg tab PO SCH (10:00)
[2019-09-28] MEDS: SODIUM CHLOR 0.9% PF (SALINE LOCK) 10ML VIAL/SYR IV SCH ×2 (12:36→21:48)
[2019-09-28] MEDS: GEMFIBROZIL 600 MG TAB PO SCH ×2 (12:37→21:43)
[2019-09-28] MEDS: CARVEDILOL 3.125 MG TAB PO SCH ×2 (12:38→21:47)
[2019-09-28] MEDS: HCTZ 25 MG TAB PO SCH (12:38)
[2019-09-28] MEDS: amLODIPine BESYLATE 5 MG TAB PO SCH (12:39)
[2019-09-28 13:00] VITALS: BP 108/62
[2019-09-28] MEDS ORDERED: CATHFLO ACTIVASE (ALTEPLASE) 2 MG VIAL IV ONE (15:00)
[2019-09-28 17:00] VITALS: BP 145/70
[2019-09-28 22:00] VITALS: BP 141/69
[2019-09-29 05:00] VITALS: BP 149/75
[2019-09-29] MEDS: SODIUM BICARBONATE 650 MG TAB PO SCH ×3 (05:27→18:00)
[2019-09-29 05:42] LABS: Calcium 8.5 mg/dL (8.5-10.1); Potassium 4.2 mmol/L (3.5-5.1)
[2019-09-29 05:46] LABS: BUN/Creatinine Ratio 19.5
[2019-09-29] MEDS: ACCU-CHEK COMFORT CURVE STRIP VI SCH ×3 (06:30→16:32)
[2019-09-29] MEDS: InsuLIN REG 1unit/0.01ml Soln (100units/ml) SC SCH ×3 (06:33→16:32)
[2019-09-29 08:00] VITALS: BP 162/83
[2019-09-29] MEDS: SODIUM CHLOR 0.9% PF (SALINE LOCK) 10ML VIAL/SYR IV SCH (09:37)
[2019-09-29] MEDS: CEFTRIAXONE SODIUM 2 GM in D5W 5% 50 ML IV SCH (09:37)
[2019-09-29] MEDS: HCTZ 25 MG TAB PO SCH (09:38)
[2019-09-29] MEDS: CARVEDILOL 3.125 MG TAB PO SCH (09:38)
[2019-09-29] MEDS: ASPirin-EC 81 mg tab PO SCH (09:38)
[2019-09-29] MEDS: GEMFIBROZIL 600 MG TAB PO SCH (09:39)
[2019-09-29] MEDS: CLOPIDOGREL BISULFATE 75 MG TAB PO SCH (09:40)
[2019-09-29] MEDS: amLODIPine BESYLATE 5 MG TAB PO SCH (09:40)
[2019-09-29 12:00] VITALS: BP 156/74
[2019-09-29 15:52] VITALS: BP 156/74
[2019-09-29 16:57] VITALS: BP 162/79
[2019-09-29] MEDS: VANCOMYCIN 1GM/250ML 250 ML IV SCH (18:00)
== END 2019-09-29 18:55 | disposition home health service (06) | DRG 252 ==
LOC: ER 09:37 → OVERFLOW 09:38 → WEST WING 15:50
PROVIDERS: ADMIT Nurse Practitioner Acute Care; ATTEND Family Medicine
PROC: 047U3ZZ Dilation of Left Peroneal Artery, Percutaneous Approach (ICD-10-PCS; 2019-09-25)
PROC: B41GYZZ Fluoroscopy of Left Lower Extremity Arteries using Other Contrast (ICD-10-PCS; 2019-09-25)
PROC: 0SBN0ZZ Excision of Left Metatarsal-Phalangeal Joint, Open Approach (ICD-10-PCS; 2019-09-28)
PROC: 0Y6Y0Z0 Detachment at Left 5th Toe, Complete, Open Approach (ICD-10-PCS; principal; 2019-09-28 09:59)
PROC: 0QBP0ZZ Excision of Left Metatarsal, Open Approach (ICD-10-PCS; 2019-09-28 09:59)
DX: E10.51 Type 1 diabetes mellitus with diabetic peripheral angiopathy without gangrene (principal); N17.0 Acute kidney failure with tubular necrosis; M86.9 Osteomyelitis, unspecified; I16.1 Hypertensive emergency; E44.0 Moderate protein-calorie malnutrition; L03.90 Cellulitis, unspecified; M31.8 Other specified necrotizing vasculopathies; I69.351 Hemiplegia and hemiparesis following cerebral infarction affecting right dominant side; E87.5 Hyperkalemia; N18.3 Chronic kidney disease, stage 3 (moderate); I73.9 Peripheral vascular disease, unspecified; I48.91 Unspecified atrial fibrillation; I12.9 Hypertensive chronic kidney disease with stage 1 through stage 4 chronic kidney disease, or unspecified chronic kidney disease; E10.22 Type 1 diabetes mellitus with diabetic chronic kidney disease; E10.69 Type 1 diabetes mellitus with other specified complication; L97.529 Non-pressure chronic ulcer of other part of left foot with unspecified severity; L98.499 Non-pressure chronic ulcer of skin of other sites with unspecified severity; Z88.8 Allergy status to other drugs, medicaments and biological substances; Z79.4 Long term (current) use of insulin; Z79.899 Other long term (current) drug therapy; I25.2 Old myocardial infarction; Z83.3 Family history of diabetes mellitus; Z87.891 Personal history of nicotine dependence; Z68.29 Body mass index [BMI] 29.0-29.9, adult
CPT/HCPCS: 36415; 36569; 37228; 71045; 73630; 73718; 75710; 80048; 80053; 80202; 81001; 82962; 83036; 83605; 85025; 85610; 86141; 87040; 87070; 87075; 87076; 87077; 87186; 87205; 93306; 93926; 94640; 96365; 96367; 99152; 99153; G0378; J0690; J0696; J1815; J1956; J2250; J2704; J3490; J7060; Q9967

== ENCOUNTER → 2020-01-31 | Emergency (ER) | payer MEDICARE, MEDICAID ==
[~2020-01-31] VITALS: Ht 205.7 cm; Wt 104.3 kg
[~2020-01-31] MED LIST changes: +ASPI-543 PO; -ENAL20TA PO; +ENAL20TA8 PO; +GEMF600T7 PO; +HYDR25TA4 PO; +LABETALOL HCL 5 MG/ML 4ML SYRINGE IV ONE; +LISI40TA11 PO; +MORPHINE SULF INJ 2 MG/ML SYRINGE 1ML IV PRN; +NITROGLYCERIN 0.4 MG SL TAB SL PRN; +ONDANSETRON HCL 4 MG/2 ML VIAL IV ONE
[2020-01-31 08:36] LABS: Basophils # (auto) 0.1 10 ^3/uL (0-0.2); Eosinophils # (auto) 0.2 10 ^3/uL (0-0.8); Monocytes # (auto) 0.7 10 ^3/uL (0-1.3); Red Blood Cells 4.29 10^6/uL (4.5-5.90)
[2020-01-31 08:38] LABS: Basophils % (auto) 0.8 % (0.0-2.0); Eosinophils % (auto) 2.1 % (0.0-7.0); Hematocrit 32.7 % (41.0-53.0); Hemoglobin 10.5 g/dL (13.5-17.5); Lymphocytes # (auto) 1.6 10 ^3/uL (0.4-5.4); Mean Corpuscular Hemoglobin 24.3 pg (28.0-32.0); Mean Corpuscular Hgb Conc. 31.9 g/dL (32.0-36.0); Mean Corpuscular Volume 76.2 fL (80.0-100.0); Monocytes % (auto) 6.2 % (0.0-12.0); Neutrophils # (auto) 8.6 10 ^3/uL (1.6-8.6); Neutrophils % (auto) 76.9 % (37.0-80.0); Platelet Count (auto) 372 10^3/uL (140-450); Red Cell Distribution Width 13.2 % (11.8-14.3); White Blood Cell 11.2 10^3/uL (4.4-10.8)
[2020-01-31 08:54] LABS: Albumin 2.9 g/dL (3.4-5.0); Anion Gap 8 (5-15); Blood Urea Nitrogen 36 mg/dL (7-18); Calcium 8.9 mg/dL (8.5-10.1); Carbon Dioxide 22 mmol/L (21-32); Chloride 108 mmol/L (98-107); Glucose 219 mg/dL (74-106); Potassium 4.1 mmol/L (3.5-5.1); Sodium 138 mmol/L (136-145)
[2020-01-31 09:01] LABS: Alanine Aminotransferase 20 U/L (16-61); Alkaline Phosphatase 147 U/L (45-117); Aspartate Aminotransferase 12 U/L (15-37); BUN/Creatinine Ratio 18.2; Bilirubin, Total 0.7 mg/dL (0.2-1.0); GFR African American 48 mL/min; GFR Non-African American 40 mL/min; Total Protein 7.7 g/dL (6.4-8.2)
[2020-01-31 11:58] LABS: Urine Bacteria NONE SEEN /hpf (None Seen); Urine Blood 1+ /uL (Negative); Urine Hyaline Cast FEW /lpf (0 - 2); Urine Specific Gravity 1.012 (1.001-1.035); Urine WBC 1 /hpf (0 - 3)
[2020-01-31 12:00] VITALS: BP 167/76
== END | disposition home or self-care (01) ==
LOC: ER 07:49 → TELE 07:50 → UNDOADMIN 07:50
DX: I10 Essential (primary) hypertension (principal); I63.9 Cerebral infarction, unspecified; I48.91 Unspecified atrial fibrillation; E11.9 Type 2 diabetes mellitus without complications; I25.2 Old myocardial infarction
CPT/HCPCS: 36415; 70450; 80053; 81001; 84484; 85025; 93005; 96374; 96375; 99285; J2405; J3490

== ENCOUNTER 2020-09-23 11:59 | Inpatient (IN) | payer MEDICARE, MEDICAID ==
[~2020-09-23] VITALS: Ht 177.8 cm; Wt 104.4 kg
[~2020-09-23 11:59] MED LIST changes: -LABETALOL HCL 5 MG/ML 4ML SYRINGE IV ONE; -MORPHINE SULF INJ 2 MG/ML SYRINGE 1ML IV PRN; -NITROGLYCERIN 0.4 MG SL TAB SL PRN; -ONDANSETRON HCL 4 MG/2 ML VIAL IV ONE; +RABE20TA19 PO; -RABE20TA5 PO
[2020-09-23 12:57] LABS: Basophils # (auto) 0.1 10 ^3/uL (0-0.2); Basophils % (auto) 1.2 % (0.0-2.0); Eosinophils # (auto) 0.1 10 ^3/uL (0-0.8); Eosinophils % (auto) 0.8 % (0.0-7.0); Hematocrit 28.6 % (41.0-53.0); Hemoglobin 9.2 g/dL (13.5-17.5); Lymphocytes # (auto) 1.7 10 ^3/uL (0.4-5.4); Lymphocytes % (auto) 15.7 % (10.0-50.0); Mean Corpuscular Hemoglobin 24.3 pg (28.0-32.0); Mean Corpuscular Hgb Conc. 32.1 g/dL (32.0-36.0); Mean Corpuscular Volume 75.5 fL (80.0-100.0); Monocytes # (auto) 0.8 10 ^3/uL (0-1.3); Monocytes % (auto) 7.5 % (0.0-12.0); Neutrophils # (auto) 8.3 10 ^3/uL (1.6-8.6); Neutrophils % (auto) 74.8 % (37.0-80.0); Nucleated Red Blood Cells % 0.1 %; Platelet Count (auto) 486 10^3/uL (140-450); Red Blood Cells 3.79 10^6/uL (4.5-5.90); Red Cell Distribution Width 13.8 % (11.8-14.3); White Blood Cell 11.1 10^3/uL (4.4-10.8)
[2020-09-23 13:05] LABS: Albumin 2.5 g/dL (3.4-5.0); Anion Gap 11 (5-15); Blood Urea Nitrogen 58 mg/dL (7-18); Calcium 8.5 mg/dL (8.5-10.1); Carbon Dioxide 20 mmol/L (21-32); Chloride 108 mmol/L (98-107); Glucose 242 mg/dL (74-106); Magnesium 2.2 mg/dL (1.6-2.6); Potassium 4.2 mmol/L (3.5-5.1); Sodium 139 mmol/L (136-145)
[2020-09-23 13:07] LABS: Alanine Aminotransferase 14 U/L (16-61); Aspartate Aminotransferase 8 U/L (15-37); BUN/Creatinine Ratio 19.7; Blood Alcohol < 3.0 mg/dL (0-5); GFR African American 30 mL/min; GFR Non-African American 25 mL/min
[2020-09-23 13:09] LABS: Alkaline Phosphatase 128 U/L (45-117); Bilirubin, Total 0.5 mg/dL (0.2-1.0); Total Protein 7.7 g/dL (6.4-8.2)
[2020-09-23 13:16] LABS: Urine Bacteria NONE SEEN /hpf (None Seen); Urine Blood 1+ /uL (Negative); Urine Specific Gravity 1.013 (1.001-1.035); Urine WBC <1 /hpf (0 - 3)
[2020-09-23] MEDS ORDERED: MORPHINE SULF INJ 2 MG/ML SYRINGE 1ML IV PRN ×3 (14:15→15:30)
[2020-09-23] MEDS ORDERED: NITROGLYCERIN 0.4 MG SL TAB SL PRN ×2 (14:15→15:30)
[2020-09-23] MEDS ORDERED: hydrALAZINE HCL 20 MG/ML VL IV PRN (15:30)
[2020-09-23] MEDS ORDERED: LABETALOL HCL 5 MG/ML 4ML SYRINGE IV ONE (15:30)
[2020-09-23] MEDS ORDERED: ONDANSETRON HCL 4 MG/2 ML VIAL IV PRN (15:30)
[2020-09-23] MEDS ORDERED: DOCUSATE SOD 100 MG CAP PO PRN (15:30)
[2020-09-23] MEDS ORDERED: HYDROcodone-ACET 5/325MG TAB PO PRN (15:30)
[2020-09-23] MEDS ORDERED: DEXTROSE (50%) 50ML SYRG IV PRN (15:30)
[2020-09-23] MEDS ORDERED: LORazepam 0.5 MG TAB PO PRN (15:30)
[2020-09-23] MEDS ORDERED: LACTULOSE 20Gm/30ML SOLN PO PRN (15:30)
[2020-09-23] MEDS ORDERED: ACETAMINOPHEN 325 MG TAB PO PRN (15:30)
[2020-09-23] MEDS ORDERED: PANTOPRAZOLE 40 MG/10 ML VIAL INJ IV ONE (15:30)
[2020-09-23] MEDS ORDERED: LACTULOSE 20Gm/30ML SOLN PO ONE (15:30)
[2020-09-23] MEDS ORDERED: ALUM & MAG HYDROX-SIMETH LIQ(MAALOX) 30 ML PO PRN (15:30)
[2020-09-23] MEDS ORDERED: CLINDAMYCIN 300MG IV 50 ML IV ONE (15:30)
[2020-09-23] MEDS ORDERED: cefTRIAXone 1GM/50ML D5W 50 ML IV ONE (15:30)
[2020-09-23] MEDS ORDERED: SUCRALFATE 1 GM/10 ML ORAL SUSP PO ONE (15:45)
[2020-09-23] MEDS: SODIUM CHLORIDE 0.9% 1,000 ML IV SCH (15:59)
[2020-09-23 16:06] LABS: Alcohol, Urine < 3.0 mg/dL (0-10); Amphetamine Screen, Urine NEGATIVE (NEGATIVE); Barbiturate Scree,Urine NEGATIVE (NEGATIVE); Benzodiazephine Screen, Urine POSITIVE (NEGATIVE); Cannabinoid Screen, Urine NEGATIVE (NEGATIVE); Cocaine Screen, Urine NEGATIVE (NEGATIVE); Opiate Scree,Urine NEGATIVE (NEGATIVE); Phencyclidine Screen, Urine NEGATIVE (NEGATIVE)
[2020-09-23 17:56] VITALS: BP 164/87
[2020-09-23] MEDS: ACCU-CHEK COMFORT CURVE STRIP VI SCH ×2 (18:10→21:12)
[2020-09-23] MEDS: InsuLIN REG 1unit/0.01ml Soln (100units/ml) SC SCH (18:13)
[2020-09-23] MEDS: SUCRALFATE 1 GM/10 ML ORAL SUSP PO SCH ×2 (18:13→21:12)
[2020-09-23 18:25] VITALS: BP 164/87
[2020-09-23] MEDS: CLINDAMYCIN 300MG IV 50 ML IV SCH (21:11)
[2020-09-23] MEDS: PANTOPRAZOLE 40 MG/10 ML VIAL INJ IV SCH (21:12)
[2020-09-23] MEDS: CARVEDILOL 3.125 MG TAB PO SCH (21:13)
[2020-09-23] MEDS ORDERED: ATORVASTATIN 20 MG TAB PO SCH (22:00)
[2020-09-23] MEDS ORDERED: InsuLIN REG 1unit/0.01ml Soln (100units/ml) SC SCH (22:00)
[2020-09-23 23:08] VITALS: BP 159/83
[2020-09-24] MEDS: CLINDAMYCIN 300MG IV 50 ML IV SCH (05:03)
[2020-09-24] MEDS: ACCU-CHEK COMFORT CURVE STRIP VI SCH ×2 (06:17→12:24)
[2020-09-24] MEDS: SUCRALFATE 1 GM/10 ML ORAL SUSP PO SCH ×2 (06:21→11:30)
[2020-09-24] MEDS: InsuLIN REG 1unit/0.01ml Soln (100units/ml) SC SCH ×2 (06:21→12:23)
[2020-09-24 06:52] LABS: Basophils # (auto) 0.1 10 ^3/uL (0-0.2); Eosinophils # (auto) 0.1 10 ^3/uL (0-0.8); Eosinophils % (auto) 1.7 % (0.0-7.0); Lymphocytes # (auto) 1.6 10 ^3/uL (0.4-5.4); Mean Corpuscular Hgb Conc. 33.1 g/dL (32.0-36.0); Neutrophils # (auto) 5.8 10 ^3/uL (1.6-8.6); Nucleated Red Blood Cells % 0.1 %; White Blood Cell 8.3 10^3/uL (4.4-10.8)
[2020-09-24 06:54] LABS: Basophils % (auto) 1.2 % (0.0-2.0); Hematocrit 25.2 % (41.0-53.0); Hemoglobin 8.3 g/dL (13.5-17.5); Lymphocytes % (auto) 19.7 % (10.0-50.0); Mean Corpuscular Hemoglobin 25.4 pg (28.0-32.0); Mean Corpuscular Volume 76.5 fL (80.0-100.0); Monocytes # (auto) 0.7 10 ^3/uL (0-1.3); Neutrophils % (auto) 69.4 % (37.0-80.0); Platelet Count (auto) 417 10^3/uL (140-450); Red Blood Cells 3.29 10^6/uL (4.5-5.90); Red Cell Distribution Width 13.9 % (11.8-14.3)
[2020-09-24 07:13] LABS: Potassium 3.9 mmol/L (3.5-5.1)
[2020-09-24 07:17] LABS: INR 1.01 (0.9-1.15); Partial Thromboplastin Time 29.4 sec (23.0-31.2)
[2020-09-24 07:30] LABS: Albumin 2.4 g/dL (3.4-5.0); BUN/Creatinine Ratio 21.1; Bilirubin, Total 0.5 mg/dL (0.2-1.0); Calcium 8.6 mg/dL (8.5-10.1); Magnesium 2.4 mg/dL (1.6-2.6); Phosphorus 3.7 mg/dL (2.5-4.90)
[2020-09-24] MEDS ORDERED: cefTRIAXone 1GM/50ML D5W 50 ML IV SCH (09:00)
[2020-09-24] MEDS: SODIUM CHLORIDE 0.9% 1,000 ML IV SCH (09:53)
[2020-09-24] MEDS: CARVEDILOL 3.125 MG TAB PO SCH (09:54)
[2020-09-24] MEDS: PANTOPRAZOLE 40 MG/10 ML VIAL INJ IV SCH (09:54)
[2020-09-24] MEDS ORDERED: HCTZ 25 MG TAB PO SCH (10:00)
[2020-09-24] MEDS ORDERED: GEMFIBROZIL 600 MG TAB PO SCH (10:00)
[2020-09-24 13:00] VITALS: BP 188/90
== END 2020-09-24 14:40 | disposition left against medical advice (07) | DRG 65 ==
LOC: EDBD 11:59 → ER 11:59 → TELE 12:00 → TELE-CENTR 17:00
PROVIDERS: ADMIT Hospitalist; ATTEND Hospitalist
DX: I63.9 Cerebral infarction, unspecified (principal); E44.0 Moderate protein-calorie malnutrition; I48.19 Other persistent atrial fibrillation; I16.9 Hypertensive crisis, unspecified; I48.92 Unspecified atrial flutter; I13.0 Hypertensive heart and chronic kidney disease with heart failure and stage 1 through stage 4 chronic kidney disease, or unspecified chronic kidney disease; N17.9 Acute kidney failure, unspecified; N18.4 Chronic kidney disease, stage 4 (severe); G81.91 Hemiplegia, unspecified affecting right dominant side; Z20.822 Contact with and (suspected) exposure to COVID-19; R47.01 Aphasia; Z53.29 Procedure and treatment not carried out because of patient's decision for other reasons; E11.22 Type 2 diabetes mellitus with diabetic chronic kidney disease; D50.9 Iron deficiency anemia, unspecified; I25.10 Atherosclerotic heart disease of native coronary artery without angina pectoris; E78.5 Hyperlipidemia, unspecified; E11.65 Type 2 diabetes mellitus with hyperglycemia; I50.9 Heart failure, unspecified; Z80.3 Family history of malignant neoplasm of breast; Z82.49 Family history of ischemic heart disease and other diseases of the circulatory system; Z83.3 Family history of diabetes mellitus; Z86.73 Personal history of transient ischemic attack (TIA), and cerebral infarction without residual deficits; I25.2 Old myocardial infarction; Z91.19 Patient's noncompliance with other medical treatment and regimen; Z82.3 Family history of stroke
CPT/HCPCS: 36415; 70450; 71046; 73600; 80053; 80061; 80307; 80320; 81001; 82306; 82962; 83036; 83735; 84100; 84443; 84484; 85025; 85610; 85730; 87040; 87086; 87426; 93005; 93306; 96365; 96375; C9113; G0378; J0696; J1815; J3490

== ENCOUNTER 2020-10-18 16:57 | Inpatient (IN) | payer MEDICARE, MEDICAID ==
[~2020-10-18] VITALS: Ht 182.9 cm; Wt 110.1 kg
[2020-10-18] MEDS ORDERED: EPINEPHrine HCL 250 ML IV ONE (17:08)
[2020-10-18] MEDS: EPINEPHrine HCL 250 ML IV SCH (17:12)
[2020-10-18] MEDS ORDERED: EPINEPHrine HCL 1 MG/10 ML SYRG ONE (17:23)
[2020-10-18] MEDS ORDERED: SODIUM BICARBONATE 8.4% INJ 50ML SYRINGE ONE ×2 (17:26→17:58)
[2020-10-18] MEDS ORDERED: SODIUM BICARBONATE 8.4 % INJ 50ML VIAL IV ONE ×4 (17:27→18:15)
[2020-10-18] MEDS ORDERED: SODIUM CHLORIDE 0.9% 1,000 ML IV ONE (17:30)
[2020-10-18] MEDS ORDERED: NOREPINEPHRINE 8 MG/250ML KIT 250 ML IV ONE (17:32)
[2020-10-18] MEDS: NOREPINEPHRINE 8 MG/250ML KIT 250 ML IV SCH (17:45)
[2020-10-18 17:50] LABS: Hemoglobin 8.1 g/dL (13.5-17.5); Mean Corpuscular Hemoglobin 23.9 pg (28.0-32.0); Red Blood Cells 3.37 10^6/uL (4.5-5.90)
[2020-10-18 17:51] LABS: Hematocrit 26.2 % (41.0-53.0); Mean Corpuscular Hgb Conc. 30.7 g/dL (32.0-36.0); Mean Corpuscular Volume 77.8 fL (80.0-100.0); Platelet Count (auto) 433 10^3/uL (140-450); Red Cell Distribution Width 14.5 % (11.8-14.3); White Blood Cell 15.1 10^3/uL (4.4-10.8)
[2020-10-18 17:54] LABS: Basophils % (manual) 0 (0.0-2.0); Blast Cells 0; Myelocytes % 0; Promyelocytes % 0; Reactive Lymphocytes 0
[2020-10-18 18:05] LABS: Albumin 1.9 g/dL (3.4-5.0); Anion Gap 14 (5-15); Blood Urea Nitrogen 40 mg/dL (7-18); Calcium 8.1 mg/dL (8.5-10.1); Carbon Dioxide 15 mmol/L (21-32); Chloride 113 mmol/L (98-107); Glucose 203 mg/dL (74-106); Magnesium 2.2 mg/dL (1.6-2.6); Potassium 3.8 mmol/L (3.5-5.1); Sodium 142 mmol/L (136-145)
[2020-10-18 18:06] LABS: INR 1.02 (0.9-1.15); Partial Thromboplastin Time 27.1 sec (23.0-31.2)
[2020-10-18 18:12] LABS: Alanine Aminotransferase 43 U/L (16-61); Alkaline Phosphatase 107 U/L (45-117); Aspartate Aminotransferase 61 U/L (15-37); BUN/Creatinine Ratio 15.8; Bilirubin, Total 0.1 mg/dL (0.2-1.0); GFR African American 36 mL/min; GFR Non-African American 30 mL/min; Total Protein 6.2 g/dL (6.4-8.2)
[2020-10-18] MEDS ORDERED: EPINEPHrine HCL 1 MG/10 ML SYRG IV ONE (18:15)
[2020-10-18 19:10] LABS: Band Neutrophils % (manual) 8; Lymphocytes % (manual) 48 (10.0-50.0)
[2020-10-18 19:11] LABS: Eosinophils % (manual) 2 (0-7); Metamyelocytes % 2; Monocytes % (manual) 8 (0-12)
[2020-10-18 19:49] VITALS: BP 188/89
[2020-10-18] MEDS ORDERED: ONDANSETRON HCL 4 MG/2 ML VIAL IV PRN (21:15)
[2020-10-18] MEDS ORDERED: MORPHINE SULF INJ 2 MG/ML SYRINGE 1ML IV PRN (21:15)
[2020-10-18] MEDS ORDERED: DEXTROSE (50%) 50ML SYRG IV PRN (21:15)
[2020-10-18] MEDS ORDERED: NITROGLYCERIN 0.4 MG SL TAB SL PRN (21:15)
[2020-10-18 21:32] LABS: Urine Amorphous Crystal FEW /hpf (None Seen); Urine Bacteria NONE SEEN /hpf (None Seen); Urine Blood 3+ /uL (Negative); Urine Specific Gravity 1.012 (1.001-1.035); Urine WBC 9 /hpf (0 - 3)
[2020-10-18] MEDS ORDERED: LORazepam 2MG/ML-1ML VIAL IM PRN ×2 (21:45→22:15)
[2020-10-18 21:53] VITALS: BP 170/73
[2020-10-18] MEDS: SODIUM CHLORIDE 0.9% 1,000 ML IV SCH (22:20)
[2020-10-18] MEDS: CLINDAMYCIN 300MG IV 50 ML IV SCH (22:20)
[2020-10-18 22:27] LABS: Lactic Acid w/Reflex 4.5 mmol/L (0.4-2.0)
[2020-10-18] MEDS: MIDAZOLAM DRIP 50 mg/50mL 50 ML IV SCH (23:07)
[2020-10-19] VITALS (99 sets, daily range): BP systolic 126–194; BP diastolic 62–92
[2020-10-19] MEDS: ACCU-CHEK COMFORT CURVE STRIP VI SCH ×5 (00:40→23:46)
[2020-10-19] MEDS ORDERED: ENOXAPARIN SOD 100 MG/1 ML SYRINGE SC ONE (01:15)
[2020-10-19] MEDS: InsuLIN REG 1unit/0.01ml Soln (100units/ml) SC SCH ×5 (01:15→23:47)
[2020-10-19] MEDS: PIPERACILLIN-TAZOB 3.375GM 100 ML IV SCH ×5 (01:15→23:32)
[2020-10-19] MEDS ORDERED: dilTIAZem 25 MG/5 ML VIAL IV ONE ×2 (02:45→02:49)
[2020-10-19 04:23] LABS: Basophils # (auto) 0 10 ^3/uL (0-0.2); Basophils % (auto) 0.2 % (0.0-2.0); Eosinophils # (auto) 0 10 ^3/uL (0-0.8); Lymphocytes # (auto) 0.8 10 ^3/uL (0.4-5.4); Neutrophils # (auto) 16.1 10 ^3/uL (1.6-8.6); Nucleated Red Blood Cells % 0.1 %
[2020-10-19 04:26] LABS: Hematocrit 24.1 % (41.0-53.0); Hemoglobin 7.8 g/dL (13.5-17.5); Lymphocytes % (auto) 4.8 % (10.0-50.0); Mean Corpuscular Hemoglobin 23.8 pg (28.0-32.0); Mean Corpuscular Hgb Conc. 32.2 g/dL (32.0-36.0); Mean Corpuscular Volume 73.8 fL (80.0-100.0); Monocytes # (auto) 0.5 10 ^3/uL (0-1.3); Monocytes % (auto) 3.1 % (0.0-12.0); Neutrophils % (auto) 91.9 % (37.0-80.0); Platelet Count (auto) 490 10^3/uL (140-450); Red Blood Cells 3.27 10^6/uL (4.5-5.90); Red Cell Distribution Width 14.5 % (11.8-14.3); White Blood Cell 17.5 10^3/uL (4.4-10.8)
[2020-10-19 04:42] LABS: Albumin 2.1 g/dL (3.4-5.0); Calcium 8.7 mg/dL (8.5-10.1); Potassium 3.9 mmol/L (3.5-5.1)
[2020-10-19 04:48] LABS: BUN/Creatinine Ratio 15.6; Bilirubin, Total 0.7 mg/dL (0.2-1.0); Total Protein 6.8 g/dL (6.4-8.2)
[2020-10-19 04:49] LABS: INR 1.15 (0.9-1.15); Partial Thromboplastin Time 33.3 sec (23.0-31.2)
[2020-10-19] MEDS: CLINDAMYCIN 300MG IV 50 ML IV SCH (05:18)
[2020-10-19] MEDS ORDERED: LABETALOL HCL 5 MG/ML 4ML SYRINGE IV ONE (05:45)
[2020-10-19 08:21] LABS: Hemoglobin 7.7 g/dL (13.5-17.5)
[2020-10-19 08:23] LABS: Hematocrit 23.7 % (41.0-53.0)
[2020-10-19] MEDS: ASPirin 300 MG RECTAL SUPP PR SCH (10:00)
[2020-10-19] MEDS: CLOPIDOGREL BISULFATE 75 MG TAB PO SCH (10:00)
[2020-10-19] MEDS: PANTOPRAZOLE 40 MG/10 ML VIAL INJ IV SCH (10:23)
[2020-10-19] MEDS: GEMFIBROZIL 600 MG TAB PO SCH ×2 (10:23→10:30)
[2020-10-19] MEDS: SODIUM CHLORIDE 0.9% 1,000 ML IV SCH (10:35)
[2020-10-19] MEDS ORDERED: ACETAMINOPHEN 650 mg PER 20.3 mL UD ONE (10:59)
[2020-10-19] MEDS ORDERED: ACETAMINOPHEN 650 mg PER 20.3 mL UD GT PRN (11:00)
[2020-10-19] MEDS: LABETALOL HCL 5 MG/ML 4ML SYRINGE IV PRN (11:32)
[2020-10-19] MEDS: EPINEPHrine HCL 250 ML IV SCH (12:24)
[2020-10-19] MEDS: NOREPINEPHRINE 8 MG/250ML KIT 250 ML IV SCH (12:24)
[2020-10-19] MEDS ORDERED: MAGNESIUM SULF 50% 40 MEQ/10 ML VL IV ONE (12:54)
[2020-10-19] MEDS ORDERED: SODIUM BICARBONATE 8.4% INJ 50ML SYRINGE IV ONE (12:54)
[2020-10-19] MEDS ORDERED: AMIODARONE HCL (50 MG/ ML) 3 ML VIAL IV ONE (12:54)
[2020-10-19] MEDS ORDERED: EPINEPHrine HCL 1 MG/10 ML SYRG IV ONE (12:54)
[2020-10-19] MEDS ORDERED: MORPHINE SULF INJ 2 MG/ML SYRINGE 1ML IV PRN (14:45)
[2020-10-19] MEDS: MIDAZOLAM DRIP 50 mg/50mL 50 ML IV SCH (17:49)
[2020-10-20] VITALS (102 sets, daily range): BP systolic 102–140; BP diastolic 45–73
[2020-10-20 03:57] LABS: Eosinophils # (auto) 0 10 ^3/uL (0-0.8); Lymphocytes # (auto) 1.8 10 ^3/uL (0.4-5.4); Monocytes # (auto) 0.8 10 ^3/uL (0-1.3)
[2020-10-20 04:00] LABS: Basophils # (auto) 0.1 10 ^3/uL (0-0.2); Basophils % (auto) 0.4 % (0.0-2.0); Hematocrit 19.6 % (41.0-53.0); Lymphocytes % (auto) 11.8 % (10.0-50.0); Mean Corpuscular Hgb Conc. 32.8 g/dL (32.0-36.0); Mean Corpuscular Volume 73.3 fL (80.0-100.0); Monocytes % (auto) 5.2 % (0.0-12.0); Neutrophils # (auto) 12.7 10 ^3/uL (1.6-8.6); Neutrophils % (auto) 82.6 % (37.0-80.0); Platelet Count (auto) 405 10^3/uL (140-450); Red Blood Cells 2.68 10^6/uL (4.5-5.90); Red Cell Distribution Width 14.9 % (11.8-14.3); White Blood Cell 15.3 10^3/uL (4.4-10.8)
[2020-10-20 04:21] LABS: Albumin 1.9 g/dL (3.4-5.0); Calcium 7.9 mg/dL (8.5-10.1); Potassium 3.9 mmol/L (3.5-5.1)
[2020-10-20 04:23] LABS: Bilirubin, Total 0.5 mg/dL (0.2-1.0); Total Protein 6.2 g/dL (6.4-8.2)
[2020-10-20 04:29] LABS: Hemoglobin 6.5 g/dL (13.5-17.5)
[2020-10-20] MEDS: PIPERACILLIN-TAZOB 3.375GM 100 ML IV SCH ×3 (05:17→18:21)
[2020-10-20] MEDS: SODIUM CHLORIDE 0.9% 1,000 ML IV SCH ×2 (05:19→13:15)
[2020-10-20] MEDS: ACCU-CHEK COMFORT CURVE STRIP VI SCH ×3 (05:34→18:21)
[2020-10-20] MEDS: InsuLIN REG 1unit/0.01ml Soln (100units/ml) SC SCH ×3 (05:41→18:40)
[2020-10-20] MEDS: ASPirin 300 MG RECTAL SUPP PR SCH (10:00)
[2020-10-20] MEDS: CLOPIDOGREL BISULFATE 75 MG TAB PO SCH (10:00)
[2020-10-20] MEDS: PANTOPRAZOLE 40 MG/10 ML VIAL INJ IV SCH (10:26)
[2020-10-20] MEDS ORDERED: BUMETANIDE 2.5mg/10ml (0.25 mg/ml) INJ IV ONE (15:15)
[2020-10-20] MEDS ORDERED: DEXTROSE (50%) 50ML SYRG IV PRN (15:15)
[2020-10-20 16:36] LABS: Urine Bacteria FEW /hpf (None Seen); Urine Blood 3+ /uL (Negative); Urine Specific Gravity 1.014 (1.001-1.035); Urine WBC 111 /hpf (0 - 3); Urine WBC Clumps PRESENT /hpf (None Seen)
[2020-10-20 17:20] LABS: Creatinine, Urine 32 mg/dL (30.0-125.0); Sodium Urine 77 mmol/L (40-220)
[2020-10-20] MEDS: MIDAZOLAM DRIP 50 mg/50mL 50 ML IV SCH (23:00)
[2020-10-21] VITALS (104 sets, daily range): BP systolic 118–167; BP diastolic 65–81
[2020-10-21] MEDS: PIPERACILLIN-TAZOB 3.375GM 100 ML IV SCH ×3 (00:18→12:18)
[2020-10-21 04:41] LABS: Basophils # (auto) 0.1 10 ^3/uL (0-0.2); Basophils % (auto) 0.8 % (0.0-2.0); Eosinophils # (auto) 0.1 10 ^3/uL (0-0.8); Eosinophils % (auto) 0.5 % (0.0-7.0); Hematocrit 20.4 % (41.0-53.0); Lymphocytes # (auto) 1.8 10 ^3/uL (0.4-5.4); Lymphocytes % (auto) 15.5 % (10.0-50.0); Mean Corpuscular Hemoglobin 24.7 pg (28.0-32.0); Mean Corpuscular Hgb Conc. 32.8 g/dL (32.0-36.0); Mean Corpuscular Volume 75.4 fL (80.0-100.0); Monocytes # (auto) 0.6 10 ^3/uL (0-1.3); Monocytes % (auto) 4.9 % (0.0-12.0); Neutrophils # (auto) 9.3 10 ^3/uL (1.6-8.6); Neutrophils % (auto) 78.3 % (37.0-80.0); Platelet Count (auto) 362 10^3/uL (140-450); Red Blood Cells 2.71 10^6/uL (4.5-5.90); Red Cell Distribution Width 15.7 % (11.8-14.3); White Blood Cell 11.9 10^3/uL (4.4-10.8)
[2020-10-21 04:42] LABS: Hemoglobin 6.7 g/dL (13.5-17.5)
[2020-10-21 04:59] LABS: Albumin 1.8 g/dL (3.4-5.0); Calcium 7.7 mg/dL (8.5-10.1)
[2020-10-21 05:04] LABS: BUN/Creatinine Ratio 10.3; Bilirubin, Total 0.5 mg/dL (0.2-1.0); Total Protein 6.2 g/dL (6.4-8.2)
[2020-10-21] MEDS: SODIUM CHLORIDE 0.9% 1,000 ML IV SCH (05:10)
[2020-10-21] MEDS: ACCU-CHEK COMFORT CURVE STRIP VI SCH ×4 (05:54→18:36)
[2020-10-21] MEDS: InsuLIN REG 1unit/0.01ml Soln (100units/ml) SC SCH ×4 (05:54→18:39)
[2020-10-21] MEDS: CLOPIDOGREL BISULFATE 75 MG TAB PO SCH (10:00)
[2020-10-21] MEDS: ASPirin 300 MG RECTAL SUPP PR SCH (10:00)
[2020-10-21] MEDS: PANTOPRAZOLE 40 MG/10 ML VIAL INJ IV SCH ×2 (10:16→22:42)
[2020-10-21] MEDS: SODIUM BICARBONATE 50ML VIAL 50 ML in SOD CHL 0.45% 1,000 ML IV SCH ×2 (10:16→22:48)
[2020-10-21] MEDS: GEMFIBROZIL 600 MG TAB PO SCH (10:17)
[2020-10-21] MEDS: PIPERACILLIN-TAZOB 2.25GM 50 ML IV SCH (18:36)
[2020-10-21] MEDS: LABETALOL HCL 5 MG/ML 4ML SYRINGE IV PRN (22:23)
[2020-10-21] MEDS: MIDAZOLAM DRIP 50 mg/50mL 50 ML IV SCH (23:30)
[2020-10-22] VITALS (105 sets, daily range): BP systolic 135–181; BP diastolic 66–82
[2020-10-22] MEDS: LABETALOL HCL 5 MG/ML 4ML SYRINGE IV PRN ×3 (00:29→13:48)
[2020-10-22] MEDS: ACCU-CHEK COMFORT CURVE STRIP VI SCH ×5 (00:52→23:54)
[2020-10-22] MEDS: PIPERACILLIN-TAZOB 2.25GM 50 ML IV SCH ×5 (00:52→23:54)
[2020-10-22] MEDS: InsuLIN REG 1unit/0.01ml Soln (100units/ml) SC SCH ×5 (00:53→23:55)
[2020-10-22 04:36] LABS: Basophils # (auto) 0.1 10 ^3/uL (0-0.2); Basophils % (auto) 0.7 % (0.0-2.0); Eosinophils # (auto) 0.1 10 ^3/uL (0-0.8); Hemoglobin 7.6 g/dL (13.5-17.5); Lymphocytes # (auto) 1.9 10 ^3/uL (0.4-5.4); Red Cell Distribution Width 16.5 % (11.8-14.3)
[2020-10-22 04:39] LABS: Eosinophils % (auto) 1.3 % (0.0-7.0); Hematocrit 23.1 % (41.0-53.0); Lymphocytes % (auto) 16.8 % (10.0-50.0); Mean Corpuscular Hemoglobin 25.3 pg (28.0-32.0); Mean Corpuscular Volume 76.9 fL (80.0-100.0); Monocytes # (auto) 0.7 10 ^3/uL (0-1.3); Monocytes % (auto) 5.9 % (0.0-12.0); Neutrophils # (auto) 8.4 10 ^3/uL (1.6-8.6); Neutrophils % (auto) 75.3 % (37.0-80.0); Platelet Count (auto) 339 10^3/uL (140-450); White Blood Cell 11.1 10^3/uL (4.4-10.8)
[2020-10-22 04:50] LABS: Albumin 1.7 g/dL (3.4-5.0); BUN/Creatinine Ratio 9.7; Calcium 7.4 mg/dL (8.5-10.1); Magnesium 2.2 mg/dL (1.6-2.6); Potassium 3.7 mmol/L (3.5-5.1)
[2020-10-22] MEDS ORDERED: hydrALAZINE HCL 20 MG/ML VL IV ONE (05:45)
[2020-10-22] MEDS ORDERED: hydrALAZINE HCL 20 MG/ML VL ONE (05:51)
[2020-10-22 06:09] LABS: Bilirubin, Total 0.8 mg/dL (0.2-1.0); Total Protein 6.4 g/dL (6.4-8.2)
[2020-10-22 06:29] LABS: Phosphorus 7.6 mg/dL (2.5-4.90)
[2020-10-22] MEDS: PANTOPRAZOLE 40 MG/10 ML VIAL INJ IV SCH ×2 (10:31→21:44)
[2020-10-22] MEDS: GEMFIBROZIL 600 MG TAB PO SCH (10:31)
[2020-10-22] MEDS: SODIUM BICARBONATE 50ML VIAL 50 ML in SOD CHL 0.45% 1,000 ML IV SCH (13:49)
[2020-10-22] MEDS ORDERED: MORPHINE SULF INJ 2 MG/ML SYRINGE 1ML IV PRN (18:45)
[2020-10-22] MEDS ORDERED: LORazepam 2MG/ML-1ML VIAL IV PRN (18:45)
[2020-10-22] MEDS: MIDAZOLAM DRIP 50 mg/50mL 50 ML IV SCH (23:53)
[2020-10-23] VITALS (47 sets, daily range): BP systolic 72–170; BP diastolic 39–80
[2020-10-23] MEDS: SODIUM BICARBONATE 50ML VIAL 50 ML in SOD CHL 0.45% 1,000 ML IV SCH (02:59)
[2020-10-23] MEDS: PIPERACILLIN-TAZOB 2.25GM 50 ML IV SCH (05:50)
[2020-10-23] MEDS: ACCU-CHEK COMFORT CURVE STRIP VI SCH (05:51)
[2020-10-23] MEDS: InsuLIN REG 1unit/0.01ml Soln (100units/ml) SC SCH (05:52)
[2020-10-23] MEDS: PANTOPRAZOLE 40 MG/10 ML VIAL INJ IV SCH (10:00)
[2020-10-23] MEDS: GEMFIBROZIL 600 MG TAB PO SCH (10:00)
== END 2020-10-23 15:15 | DRG 870 ==
LOC: ER 16:57 → EDBD 16:57 → TELE 21:02 → ICU WEST 23:39
PROVIDERS: ADMIT Nurse Practitioner; ATTEND Internal Medicine
PROC: 5A1955Z Respiratory Ventilation, Greater than 96 Consecutive Hours (ICD-10-PCS; principal; 2020-10-18)
PROC: 0BH17EZ Insertion of Endotracheal Airway into Trachea, Via Natural or Artificial Opening (ICD-10-PCS; 2020-10-18)
PROC: 06HM33Z Insertion of Infusion Device into Right Femoral Vein, Percutaneous Approach (ICD-10-PCS; 2020-10-18)
PROC: 5A12012 Performance of Cardiac Output, Single, Manual (ICD-10-PCS; 2020-10-18)
PROC: 30233N1 Transfusion of Nonautologous Red Blood Cells into Peripheral Vein, Percutaneous Approach (ICD-10-PCS; 2020-10-20)
DX: A41.9 Sepsis, unspecified organism (principal); G93.41 Metabolic encephalopathy; J69.0 Pneumonitis due to inhalation of food and vomit; E43 Unspecified severe protein-calorie malnutrition; N17.0 Acute kidney failure with tubular necrosis; G93.6 Cerebral edema; K72.00 Acute and subacute hepatic failure without coma; J96.00 Acute respiratory failure, unspecified whether with hypoxia or hypercapnia; I21.4 Non-ST elevation (NSTEMI) myocardial infarction; G93.1 Anoxic brain damage, not elsewhere classified; K92.2 Gastrointestinal hemorrhage, unspecified; N18.4 Chronic kidney disease, stage 4 (severe); R57.9 Shock, unspecified; D64.9 Anemia, unspecified; E11.22 Type 2 diabetes mellitus with diabetic chronic kidney disease; E11.42 Type 2 diabetes mellitus with diabetic polyneuropathy; G40.909 Epilepsy, unspecified, not intractable, without status epilepticus; I12.9 Hypertensive chronic kidney disease with stage 1 through stage 4 chronic kidney disease, or unspecified chronic kidney disease; R31.9 Hematuria, unspecified; Z20.822 Contact with and (suspected) exposure to COVID-19; Z51.5 Encounter for palliative care; Z66 Do not resuscitate; I46.9 Cardiac arrest, cause unspecified; E11.65 Type 2 diabetes mellitus with hyperglycemia; Z68.32 Body mass index [BMI] 32.0-32.9, adult; Z79.02 Long term (current) use of antithrombotics/antiplatelets; Z79.82 Long term (current) use of aspirin; Z79.899 Other long term (current) drug therapy; Z80.3 Family history of malignant neoplasm of breast; Z82.49 Family history of ischemic heart disease and other diseases of the circulatory system; Z83.3 Family history of diabetes mellitus; Z85.3 Personal history of malignant neoplasm of breast; Z86.73 Personal history of transient ischemic attack (TIA), and cerebral infarction without residual deficits
CPT/HCPCS: 36415; 36600; 70450; 71045; 76775; 80053; 81001; 82270; 82570; 82805; 82962; 83605; 83735; 84100; 84300; 84484; 85007; 85014; 85018; 85025; 85027; 85610; 85730; 86850; 86900; 86901; 86920; 87040; 87070; 87077; 87081; 87186; 87205; 87426; 93005; 93312; 94002; 94003; 95819; 96365; 96375; 99291; C9113; G0378; J0171; J1815; J2250; J2543; J3490